=== PATIENT | female | born 1960 | race Caucasian/White ===

== ENCOUNTER 2024-10-10 12:12 | Emergency (ER) | payer BC ==
[~2024-10-10] VITALS: Ht 177.8 cm; Wt 108.0 kg
--- NOTE | 2024-10-10 12:49 | Physician Documentation ---
History of Present Illness ~ Chief Complaint: Bite-insect Stated Complaint: SPIDER BITE Time Seen by MD: 12:45 [facility] 64-year-old female that presents to the emergency department for evaluation of a bite that she sustained approximately an hour and a half ago while gardening. Patient reports that she feels like it is a spider bite although she did not see a spider bite her did feel a sharp pain and now her foot is swollen and red. Worsens her hypertension no other significant past medical history has not taken anything at this time. Medication Reconciliation Allergies: Coded Allergies: No Known Allergies (Unverified , 10/10/24) Review of Systems ROS As stated above in the HPI, otherwise all systems are reviewed and negative. Physical Exam Vital Signs: Temperature: 97.8, Source: Temporal, Heart Rate: 97, Respiratory Rate: 18, BP: 177/93, Pulse Oximetry: 98, Weight: 108.050 Physical Exam VITALS: Reviewed and as above. GENERAL: Alert, no apparent distress. HEENT: Normocephalic, atraumatic, PERRL, EOMI, dry mucosa, no erythema RESPIRATORY: Lungs clear, normal breath sounds, no respiratory distress. CHEST: No accessory muscle use, no retractions CV: Regular rate, rhythm, no edema, no murmur, No: JVD GI: Soft, non-tender, bowels sounds present, no rebound, guarding, or rigidity BACK: No CVA tenderness, or swelling MUSCULOSKELETAL No deformities, no edema SKIN: Warm and dry, area of erythema to the dorsal lateral aspect of the left foot, mild edema noted. NEURO: Oriented x4, No motor or sensory deficit PSYCH: Normal mood and affect, no agitation Progress Results/Orders Results/Orders Completed Orders - [facility] Methylprednisolone Sod Succ (Solumedrol (10/10/24 13:05) Medications Received in ER Medications (Trade) Dose Ordered Sig/Darwin Route PRN Reason Start Time Stop Time Status Last Admin Dose Admin (SoluMEDROL 125mg inj) 125 mg ONCE ONCE IM 10/10/24 13:05 10/10/24 13:06 DC 10/10/24 13:11 125 MG Vital Signs 10/10/24 10/10/24 12:40 13:21 Temp 97.8 Pulse 97 80 Resp 18 18 B/P (MAP) 177/93 155/99 (117) Pulse Ox 98 99 O2 Flow Rate 0 Medical Decision Making Findings This patient who presents with rash consistent with bite to the dorsal aspect of the left foot. History and exam findings not consistent with dangerous etiologies of rash such as SJS/TEN, or secondary dangerous causes such as petechial rashes from thrombocytopenia or rickettsial infections. Rash does not appear urticarial with no signs of anaphylaxis either. Plan at this time is to treat symptomatically, 125 mg of Solumedrol given IM here in the ER, erythema reduced after 30 minutes. Instructed to follow up with PCP or derm PRN Differential Dx:Considerations: Include: Abrasion, Allergic reaction, Anaphylaxis, Cellulitis, Contusion, Fracture, Hematoma, Insect envenomation, Laceration, Neurovascular injury, Punture wound, Retained foreign body, Urticaria, Other Departure Disposition: 01 HOME / SELF CARE / HOMELESS Impression: Primary Impression: Insect bites Condition: Stable Additional Instructions: Evaluated short and take bite to the top of your left foot. IM injection of steroids today that should help reduce the inflammation over the next 24 hours. Please use Benadryl Tylenol ibuprofen as needed. We discussed taking 25 mg of Benadryl when you get home today and another 25 mg before bed if a minimum of 8 hours have passed since the 1st dose. Follow up with the primary care provider if there is any worsening of your current symptoms. But the ER if you have any worsening of the current symptoms that are concerning or any of the additional concerning symptoms that we discussed here today. Referrals: NO PRIMARY CARE PROVIDER (PCP) Education Educated: Patient Educated regarding: treatment, need for follow up [facility] Oct 10, 2024 12:49
[2024-10-10 13:21] VITALS: BP 155/99; PULSE 80; RESP 18; O2SAT 99
[2024-10-10 13:39] VITALS: TEMP 97.8
== END 2024-10-10 13:41 | disposition home or self-care (01) ==
LOC: ER 12:13
DX: S90.862A Insect bite (nonvenomous), left foot, initial encounter (principal); I10 Essential (primary) hypertension; W57.XXXA Bitten or stung by nonvenomous insect and other nonvenomous arthropods, initial encounter; Y93.89 Activity, other specified; Y92.89 Other specified places as the place of occurrence of the external cause; Y99.8 Other external cause status
CPT/HCPCS: 96372; 99283; J2919